=== PATIENT | male | born 2000 | race African-American/Black ===

== ENCOUNTER 2019-06-24 11:42 | Emergency (ER) | payer SELFPAY ==
[~2019-06-24] VITALS: Ht 172.7 cm; Wt 62.7 kg
[2019-06-24 12:59] VITALS: BP 121/66
[2019-06-24] MEDS ORDERED: DiphenhydrAMINE HCL 25 MG CAPSULE PO ONE (13:30)
== END 2019-06-24 13:35 | disposition home or self-care (01) ==
LOC: EMS 11:45
DX: T78.1XXA Other adverse food reactions, not elsewhere classified, initial encounter (principal); X58.XXXA Exposure to other specified factors, initial encounter